=== PATIENT | male | born 1990 | race Caucasian/White ===

== ENCOUNTER 2016-07-25 17:20 | Emergency (ER) | payer OTHER | END 2016-07-25 21:03 | disposition home or self-care (01) | LOC: D.ER 17:20 | DX: S20.229A Contusion of unspecified back wall of thorax, initial encounter (principal); V86.59XA Driver of other special all-terrain or other off-road motor vehicle injured in nontraffic accident, initial encounter; Y93.89 Activity, other specified; Y92.89 Other specified places as the place of occurrence of the external cause; S30.0XXA Contusion of lower back and pelvis, initial encounter; S60.211A Contusion of right wrist, initial encounter; F17.200 Nicotine dependence, unspecified, uncomplicated ==

== ENCOUNTER 2017-03-29 21:57 | Emergency (ER) | payer OTHER | END 2017-03-29 23:26 | disposition home or self-care (01) | LOC: D.ER 21:57 | DX: S70.02XA Contusion of left hip, initial encounter (principal); S80.12XA Contusion of left lower leg, initial encounter; W19.XXXA Unspecified fall, initial encounter; Y93.89 Activity, other specified; Y92.029 Unspecified place in mobile home as the place of occurrence of the external cause; F17.200 Nicotine dependence, unspecified, uncomplicated ==

== ENCOUNTER 2017-11-13 13:25 | Emergency (ER) | payer SELFPAY ==
[~2017-11-13] VITALS: Ht 170.2 cm; Wt 95.5 kg
[2017-11-13 13:32] VITALS: Ht 170.2 cm; Wt 95.5 kg
[2017-11-13 14:47] LABS: BASOPHILS 0.4 % (0-2); EOSINOPHILS 2.1 % (0-7); HEMATOCRIT 46.3 % (42.0-54.0); HEMOGLOBIN 15.8 g/dL (13.5-17.5); IMMATURE GRANULOCYTES 0.3 % (0-5); LYMPHOCYTES 19.4 % (15-50); MCH 29.3 pg (26.0-34.0); MCHC 34.1 g/dL (31.0-37.0); MCV 85.7 fL (80.0-100.0); MEAN PLATELET VOLUME 9.5 fL (7.4-10.4); NEUTROPHILS 67.8 % (40-80); PLATELET COUNT 229 10x3/uL (130-400); RDW 13.3 % (11.5-14.5); WBC 12.9 10x3/uL (4.8-10.8)
[2017-11-13 15:00] LABS: COLOR YELLOW (YELLOW)
[2017-11-13 15:01] LABS: APPEARANCE CLEAR (CLEAR)
[2017-11-13 15:02] LABS: BILIRUBIN NEGATIVE (NEGATIVE); GLUCOSE NEGATIVE (NEGATIVE); KETONE NEGATIVE (NEGATIVE); NITRITE NEGATIVE (NEGATIVE); PROTEIN NEGATIVE (NEGATIVE); UROBILINOGEN NORMAL (NORMAL)
[2017-11-13 15:20] LABS: ALBUMIN 4.2 g/dL (3.4-5.0); ALKALINE PHOSPHATASE 120 U/L (46-116); ALT (SGPT) 69 U/L (10-68); AMYLASE - SERUM 19 U/L (25-115); CALC OSMOLALITY 281 mosm/kg (275-300); CALCIUM 9.1 mg/dL (8.5-10.1); CARBON DIOXIDE 24.5 mmol/L (21.0-32.0); CHLORIDE - SERUM 106 mmol/L (98-107); CREATININE - SERUM 0.9 mg/dL (0.6-1.3); GLUCOSE 88 mg/dL (74-106); LIPASE 88 U/L (73-393); SODIUM 142 mmol/L (136-145); UREA NITROGEN 13 mg/dL (7-18); eGFR NON AFRICAN AMERICAN > 90 mL/min (90-120)
[2017-11-13 19:02] LABS: ERYTHROCYTE SEDIMENTATION RATE 3 mm/hr (0-15)
[2017-11-14 01:40] VITALS: BP 129/71
== END 2017-11-13 21:52 | disposition home or self-care (01) ==
LOC: D.ER 13:25
PROVIDERS: Family Medicine
DX: K62.5 Hemorrhage of anus and rectum (principal); R10.9 Unspecified abdominal pain; R19.7 Diarrhea, unspecified; F17.200 Nicotine dependence, unspecified, uncomplicated

== ENCOUNTER 2018-02-10 19:33 | Emergency (ER) | payer SELFPAY ==
[~2018-02-10] VITALS: Ht 170.2 cm; Wt 90.9 kg
[2018-02-10 19:36] VITALS: Ht 170.2 cm; Wt 90.9 kg
[2018-02-10 19:52] LABS: BASOPHILS 0.7 % (0-2); EOSINOPHILS 1.7 % (0-7); HEMATOCRIT 44.5 % (42.0-54.0); HEMOGLOBIN 15.6 g/dL (13.5-17.5); IMMATURE GRANULOCYTES 0.3 % (0-5); LYMPHOCYTES 30.8 % (15-50); MCHC 35.1 g/dL (31.0-37.0); MCV 85.6 fL (80.0-100.0); MEAN PLATELET VOLUME 9.5 fL (7.4-10.4); MONOCYTES 9.4 % (2-11); NEUTROPHILS 57.1 % (40-80); PLATELET COUNT 228 10x3/uL (130-400); RDW 13.6 % (11.5-14.5); WBC 12.2 10x3/uL (4.8-10.8)
[2018-02-10 20:06] LABS: ALBUMIN 4.4 g/dL (3.4-5.0); ALKALINE PHOSPHATASE 107 U/L (46-116); ALT (SGPT) 86 U/L (10-68); BILIRUBIN - TOTAL 1.09 mg/dL (0.2-1.3); CALC OSMOLALITY 277 mosm/kg (275-300); CALCIUM 8.8 mg/dL (8.5-10.1); CARBON DIOXIDE 28.7 mmol/L (21.0-32.0); CHLORIDE - SERUM 103 mmol/L (98-107); GLUCOSE 79 mg/dL (74-106); POTASSIUM - SERUM 3.4 mmol/L (3.5-5.1); SODIUM 139 mmol/L (136-145); UREA NITROGEN 16 mg/dL (7-18); eGFR NON AFRICAN AMERICAN > 90 mL/min (90-120)
[2018-02-10] MEDS ORDERED: LEVAQUIN500 MG PO (21:05)
[2018-02-10] MEDS ORDERED: FLAGYL500 MG PO (21:06)
[2018-02-10] MEDS ORDERED: PROTONIX40 MG PO (21:18)
[2018-02-10 22:00] VITALS: BP 116/70
== END 2018-02-10 22:00 | disposition home or self-care (01) ==
LOC: D.ER 19:33
PROVIDERS: Emergency Medicine
DX: R10.9 Unspecified abdominal pain (principal); K21.9 Gastro-esophageal reflux disease without esophagitis; K92.1 Melena; F17.200 Nicotine dependence, unspecified, uncomplicated

== ENCOUNTER 2018-03-01 21:53 | Emergency (ER) | payer SELFPAY ==
[~2018-03-01] VITALS: Ht 170.2 cm; Wt 90.9 kg
[~2018-03-01 21:53] MED LIST: FLAGYL500 MG PO; LEVAQUIN500 MG PO; PROTONIX40 MG PO
[2018-03-01 21:58] VITALS: Ht 170.2 cm; Wt 90.9 kg
[2018-03-01] MEDS ORDERED: IMODIUM2 MG PO (22:30)
[2018-03-01] MEDS ORDERED: PHENERGAN25 M1 PO (22:30)
[2018-03-01 22:41] VITALS: BP 137/76
== END 2018-03-01 22:41 | disposition home or self-care (01) ==
LOC: D.ER 21:53
DX: A08.4 Viral intestinal infection, unspecified (principal); F17.200 Nicotine dependence, unspecified, uncomplicated

== ENCOUNTER 2018-11-30 01:39 | Emergency (ER) | payer SELFPAY ==
[~2018-11-30] VITALS: Ht 170.2 cm; Wt 86.4 kg
[~2018-11-30 01:39] MED LIST changes: +IMODIUM2 MG PO; +PHENERGAN25 M1 PO
[2018-11-30 01:43] VITALS: Ht 170.2 cm; Wt 86.4 kg
[2018-11-30 02:43] VITALS: BP 138/77
== END 2018-11-30 02:44 | disposition home or self-care (01) ==
LOC: D.ER 01:39
DX: S46.912A Strain of unspecified muscle, fascia and tendon at shoulder and upper arm level, left arm, initial encounter (principal); X50.0XXA Overexertion from strenuous movement or load, initial encounter; Y93.89 Activity, other specified; Y92.89 Other specified places as the place of occurrence of the external cause

== ENCOUNTER 2019-02-18 13:25 | Emergency (ER) | payer SELFPAY ==
[~2019-02-18] VITALS: Ht 172.7 cm; Wt 90.9 kg
[2019-02-18 13:33] VITALS: Ht 172.7 cm; Wt 90.9 kg
[2019-02-18] MEDS ORDERED: ULTRAM50 MG PO (15:06)
[2019-02-18 15:58] VITALS: BP 135/85
== END 2019-02-18 15:58 | disposition home or self-care (01) ==
LOC: D.ER 13:25
DX: S83.411A Sprain of medial collateral ligament of right knee, initial encounter (principal); F17.200 Nicotine dependence, unspecified, uncomplicated

== ENCOUNTER 2019-02-26 19:16 | Emergency (ER) | payer SELFPAY ==
[~2019-02-26] VITALS: Ht 172.7 cm; Wt 90.9 kg
[~2019-02-26 19:16] MED LIST changes: +ULTRAM50 MG PO
[2019-02-26 19:45] VITALS: Ht 172.7 cm; Wt 90.9 kg
[2019-02-26] MEDS ORDERED: VOLTAREN75 MG PO (21:05)
[2019-02-26] MEDS ORDERED: BACLOFEN20 M1 PO (21:05)
[2019-02-26 22:37] VITALS: BP 120/78
== END 2019-02-26 22:37 | disposition home or self-care (01) ==
LOC: D.ER 19:16
DX: S39.012A Strain of muscle, fascia and tendon of lower back, initial encounter (principal); V43.52XA Car driver injured in collision with other type car in traffic accident, initial encounter; F17.210 Nicotine dependence, cigarettes, uncomplicated

== ENCOUNTER 2019-03-18 14:18 | Emergency (ER) | payer SELFPAY ==
[~2019-03-18] VITALS: Ht 172.7 cm; Wt 81.8 kg
[~2019-03-18 14:18] MED LIST changes: +BACLOFEN20 M1 PO; +VOLTAREN75 MG PO
[2019-03-18 14:42] VITALS: Ht 172.7 cm; Wt 81.8 kg
[2019-03-18 18:41] VITALS: BP 126/88
== END 2019-03-18 18:42 | disposition home or self-care (01) ==
LOC: D.ER 14:18
DX: M54.6 Pain in thoracic spine (principal); F17.200 Nicotine dependence, unspecified, uncomplicated

== ENCOUNTER 2020-02-17 17:18 | Emergency (ER) | payer OTHER ==
[~2020-02-17] VITALS: Ht 172.7 cm; Wt 90.9 kg
[2020-02-17 17:44] VITALS: BP 147/79; Ht 172.7 cm; Wt 90.9 kg
== END 2020-02-17 19:44 | disposition home or self-care (01) ==
LOC: D.ER 17:18
DX: M25.561 Pain in right knee (principal); X50.1XXA Overexertion from prolonged static or awkward postures, initial encounter; Y93.9 Activity, unspecified; Y92.9 Unspecified place or not applicable